=== PATIENT | female | born 1995 | race African-American/Black ===

== ENCOUNTER 2022-08-16 19:31 | Emergency (ER) | payer MEDICAID ==
--- NOTE | 2022-08-16 20:05 | NUR ---
PATIENT CALL TO TRIAGE, NO RESPONSE PATIENT LEFT WITHOUT BEING SEEN BY DR. PRASAD. NO FURTHER CARE PROVIDED FOR PATIENT.
--- NOTE | 2022-08-16 20:10 | NUR ---
CALLED FOR THE SECOND TIME NO RESPONSE
--- NOTE | 2022-08-16 20:20 | NUR ---
CALLED FOR THE THIRD TIME , NO RESPONSE
== END 2022-08-16 20:05 | disposition left against medical advice (07) ==
LOC: MED 19:31
DX: R10.9 Unspecified abdominal pain (principal); Z53.21 Procedure and treatment not carried out due to patient leaving prior to being seen by health care provider